=== PATIENT | female | born 1975 | race Caucasian/White ===

== ENCOUNTER 2018-01-23 08:20 | Emergency (ER) | payer OTHER ==
[~2018-01-23] VITALS: Ht 188 cm; Wt 181.4 kg
[2018-01-23 08:29] VITALS: Ht 188 cm; Wt 181.4 kg
[2018-01-23 09:19] LABS: BASOPHIL % 0.7 % (0-2)
[2018-01-23 09:20] LABS: PLATELET COUNT 428 x10^3mcL (130-400); RED CELL DISTRIBUTION WIDTH 17.7 % (11.5-14.5)
[2018-01-23 09:32] LABS: CALCIUM 8.8 mg/dL (8.5-10.1); CARBON DIOXIDE 27.4 mmol/L (21-32); CHLORIDE SERUM 103 mmol/L (98-107); CREATININE SERUM 0.7 mg/dL (0.6-1.0); GFR1 > 60 mL/min; GLUCOSE SERUM 87 mg/dL (74-106); POTASSIUM SERUM 4.1 mmol/L (3.5-5.1); SODIUM SERUM 139 mmol/L (136-145)
[2018-01-23 09:44] LABS: ALKALINE PHOSPHATASE 94 U/L (46-116); ALT/SGPT 33 U/L (14-59); AST/SGOT 24 U/L (15-37); BILIRUBIN TOTAL 0.2 mg/dL (0.20-1.00); T4(THYROXINE) 5.6 ug/dL (4.7-13.3); TOTAL PROTEIN, SERUM 7.7 g/dL (6.4-8.2)
[2018-01-23 09:46] LABS: ALBUMIN 3.2 g/dL (3.4-5.0)
[2018-01-23 11:55] LABS: UA SPECIFIC GRAVITY 1.015 (1.005-1.035); microscopic required? YES; urine erythrocyte NEGATIVE (NEGATIVE)
[2018-01-23 12:09] LABS: AMPHETAMINE QUAL UR NONE DETECTED (See below)
[2018-01-23 13:03] VITALS: BP 104/73
== END 2018-01-23 13:33 | disposition home or self-care (01) ==
LOC: ED 08:20
PROVIDERS: Emergency Medicine
DX: R60.0 Localized edema (principal); F17.210 Nicotine dependence, cigarettes, uncomplicated; M19.90 Unspecified osteoarthritis, unspecified site
CPT/HCPCS: 83880; 99406; J1940; Q0092

== ENCOUNTER 2019-12-15 02:17 | Emergency (ER) | payer OTHER ==
[~2019-12-15] VITALS: Ht 188 cm; Wt 193.7 kg
[2019-12-15 02:30] VITALS: Ht 188 cm; Wt 193.7 kg
[2019-12-15 04:00] VITALS: BP 132/81
== END 2019-12-15 03:51 | disposition home or self-care (01) ==
LOC: ED 02:17
DX: S00.452A Superficial foreign body of left ear, initial encounter (principal); M19.90 Unspecified osteoarthritis, unspecified site; W45.8XXA Other foreign body or object entering through skin, initial encounter; Y93.89 Activity, other specified; Y92.89 Other specified places as the place of occurrence of the external cause; Y99.8 Other external cause status